=== PATIENT | female | born 1975 | race Caucasian/White ===

== ENCOUNTER 2017-11-04 11:50 | Emergency (ER) | payer OTHER ==
[2017-11-04] MEDS ORDERED: 0.9 % SODIUM CHLORIDE 1,000 ML IV ONE (12:30)
[2017-11-04] MEDS: 0.9 % SODIUM CHLORIDE 1,000 ML IV SCH (12:33)
[2017-11-04] MEDS: ASPIRIN 81 MG CHEW TAB PO ONE (12:33)
[2017-11-04 12:40] LABS: BASOPHILS % 0.5 (0.0-1.5); EOSINOPHILS % 0.6 % (0.0-6.8); MEAN CORPUSCULAR HEMOGLOBIN 30.8 pg (28.0-34.0); MEAN CORPUSCULAR VOLUME 93.3 fl (80.0-100.0); MONOCYTES % 2.3 % (0.0-11.0); NEUTROPHILS # 5.9 # k/uL (1.4-7.7)
[2017-11-04 13:04] LABS: eGFR (African) > 60; eGFR (Non-African) > 60
[2017-11-04] MEDS: POTASSIUM CHLORIDE 20 MEQ TABLET.ER PO ONE (13:23)
--- NOTE | 2017-11-04 13:31 | ED Physician Documentation ---
Chest Pain - HISTORIAN Historian: patient - HPI Stated Complaint: Chest pain Chief Complaint: Chest Pain Additional Information: this am Onset: hours (1) Timing: sudden onset Duration: constant, sudden-onset Last known Well Date: 11/03/17 Last Known Well Time: 18:00 Context: activity Severity: mild Quality: sharp Front/Back of Body, Lg (Color): 1 - chest pain Chest Pain Radiation: no radiation Chest Pain Signs/Symptoms: denies: nausea, vomiting, diaphoresis, cool extremities, dizziness, dyspnea Worsened By: nothing Relieved By: nothing Further Comments: no - ROS CONST: none MS/LYMPH: none GI/: none EYES/ENT: none SKIN/ENDO: none NEURO/PSYCH: none - PAST HX RI risk factors: no pertinent history DVT/PE Risk Factors: none TAD/AAA risk factors: none Neuro deficit: none GI disease: none Lung disease: none Surgeries/Procedures: other (ortho) Immunizations: referred to PCP Allergies/Adverse Reactions: Allergies Allergy/AdvReac Type Severity Reaction Status Date / Time No Known Allergies Allergy Verified 11/04/17 12:21 Home Medications: Ambulatory Orders Medication Instructions Recorded Alprazolam [Xanax] 0.25 mg PO QID PRN 11/04/17 Primidone [Mysoline] 50 mg PO DAILY 11/04/17 Sertraline HCl [Zoloft] 25 mg PO 11/04/17 - SOCIAL HX Smoking History: cigarettes Alcohol Use: none Drug Use: none - FAMILY HX Family HX: none - VITAL SIGNS Vital Signs: Vital Signs Temp Pulse Resp BP Pulse Ox 98.2 F 64 18 119/71 98 11/04/17 12:14 11/04/17 12:55 11/04/17 12:14 11/04/17 12:14 11/04/17 12:55 - REVIEWED ASSESSMENTS Nursing Assessment Reviewed: Yes Vitals Reviewed: Yes Progress - Results/Orders Results/Orders: cbc, cmp, trop, ekg ordered - Progress Progress: pt. given asa 325 mg, 1 liter ns, 20 meq kcl in er Critical Care Note - Critical Care Note Total Time (mins): 0 ED Results Lab/Radiology - Lab Results Lab Results: Lab Results 11/04/17 11/04/17 11/04/17 12:25 12:25 12:25 WBC 8.20 K/ul K/ul (4.00-12.00) RBC 4.24 M/ul M/ul (3.90-5.20) Hgb 13.1 g/dL g/dL (12.0-16.0) Hct 39.5 % % (34.5-46.5) MCV 93.3 fl fl (80.0-100.0) MCH 30.8 pg pg (28.0-34.0) MCHC 33.1 g/dL g/dL (30.0-36.0) RDW 13.7 % % (11.3-14.3) Plt Count 362 K/mm3 K/mm3 (130-400) Neut % (Auto) 71.5 % % (39.0-79.0) Lymph % (Auto) 23.4 % % (16.0-50.0) Ashley % (Auto) 2.3 % % (0.0-11.0) Eos % (Auto) 0.6 % % (0.0-6.8) Baso % (Auto) 0.5 (0.0-1.5) Neut # (Auto) 5.9 # k/uL # k/uL (1.4-7.7) Lymph # (Auto) 1.9 # k/uL # k/uL (0.6-4.0) Ashley # (Auto) 0.2 # k/uL # k/uL (0.0-0.9) Eos # (Auto) 0.0 # k/uL # k/uL (0.0-0.6) Baso # (Auto) 0.0 # k/uL # k/uL (0.0-0.5) Reactive Lymphs % 1.7 % % (0.0-5.0) Reactive Lymphs # 0.1 # k/uL # k/uL (0.0-0.8) Sodium 141 mmol/L mmol/L (136-145) Potassium 3.4 mmol/L L mmol/L (3.5-5.1) Chloride 101 mmol/L mmol/L (98-107) Carbon Dioxide 29 mmol/L mmol/L (22-30) BUN 5 mg/dL L mg/dL (7-17) Creatinine 0.70 mg/dL mg/dL (0.52-1.04) Estimated Creat Clear 129 Est GFR ( Amer) > 60 (60 - ) Est GFR (Non-Af Amer) > 60 (60 - ) Glucose 81 mg/dL mg/dL (74-106) Calcium 9.1 mg/dL mg/dL (8.4-10.2) Total Bilirubin 0.6 mg/dL mg/dL (0.2-1.3) AST 17 U/L U/L (15-46) ALT 25 U/L U/L (13-69) Alkaline Phosphatase 68 U/L U/L (38-126) Troponin I < 0.03 ng/mL L ng/mL (0.03-0.06) Total Protein 7.0 g/dL g/dL (6.3-8.2) Albumin 3.9 g/dL g/dL (3.5-5.0) - Radiology Radiology Impressions: cxr neg - Orders Orders: ED Orders Category Date Time Status Continuous EKG monitoring Q30M Care 11/04/17 12:25 Active Continuous Pulse Oximetry Q30M Care 11/04/17 12:[address] IV Lock 1T Care 11/04/17 12:25 Active CBC/PLATELET/DIFF Routine Lab 11/04/17 12:25 Completed CMP Routine Lab 11/04/17 12:25 Completed TROPONIN I (cTnI) Stat Lab 11/04/17 12:25 Completed 0.9 % Sodium Chloride [Normal Saline] 1,000 ml Med 11/04/17 12:30 Ordered IV .Q1H Aspirin Med 11/04/17 12:25 Discontinued 324 mg PO NOW ONE Potassium Chloride [Klor-Con M20] Med 11/04/17 13:24 Discontinued 20 meq .ROUTE .STK-MED ONE Potassium Chloride [Klor-Con M20] Med 11/04/17 13:23 Once 20 meq PO NOW ONE EKG WITH COMPARISON Stat Ther 11/04/17 12:25 Ordered Chest Pain Physical Exam - EXAM General Appearance: no acute distress, alert EENT: eye inspection normal, ENT inspection normal, pharynx normal, no signs of dehydration Neck: nml inspection, no carotid bruit Respiratory: no resp. distress, chest non-tender, nml breath sounds CVS: reg. rate & rhythm, no murmur, no gallop Abdomen: soft, no organomegaly, normal bowel sounds, no abdominal bruit, no distension, non-tender Skin: warm/dry, normal color Extremities: non-tender, normal range of motion, no evidence of injury, no edema Neuro: oriented X3, CN's nml as tested, motor nml, sensation nml, mood/affect nml, cognition normal Discharge Clincal Impression: Costochondritis Referrals: Ambreen Rosa MD [Primary Care Provider] - 2 Days Comments: Pt. discharged with recommendations for over the counter Ibuprofen 4 pills 3x/ day as needed for chest wall pain. Condition: Stable Disposition: 01 HOME, SELF-CARE Decision to Admit: NO Decision Time: 13:30
[2017-11-04] MEDS: POTASSIUM CHLORIDE 20 MEQ TABLET.ER ONE (13:41)
[2017-11-04 13:47] VITALS: BP 118/76
== END 2017-11-04 13:43 | disposition home or self-care (01) ==
LOC: ED 11:50
DX: M94.0 Chondrocostal junction syndrome [Tietze] (principal); F17.210 Nicotine dependence, cigarettes, uncomplicated
CPT/HCPCS: 36415; 80053; 84484; 85025; 93005; A9270; J7030; 99283; S1016